=== PATIENT | female | born 1990 | race Caucasian/White ===

== ENCOUNTER 2017-04-25 16:26 | Emergency (ER) | payer MEDICAID, OTHER ==
[2017-04-25 21:52] LABS: ADD MAN DIFF? NO
[2017-04-25 21:55] LABS: WHITE BLOOD COUNT 10.5 10^3/ul (4.8-10.8)
[2017-04-25 21:55] LABS: BASOPHILS % 0.3 % (0.0-2.0); EOSINOPHILS # 0.1 10^3/ul (0.0-0.5); HEMATOCRIT 32.9 % (37.0-47.0); HEMOGLOBIN 11.5 g/dl (12.0-16.0); LYMPHOCYTES # 2.6 10^3/ul (0.8-2.9); LYMPHOCYTES % 24.9 % (15.0-51.0); MEAN CORPUSCULAR HEMOGLOBIN 30.3 pg (29.0-33.0); MEAN CORPUSCULAR VOLUME 86.6 fl (82.0-101.0); MEAN PLATELET VOLUME 10.7 fl (7.4-10.4); MONOCYTE # 0.9 10^3/ul (0.3-0.9); MONOCYTES % 8.6 % (0.0-11.0); NEUTROPHIL # 6.8 10^3/ul (1.6-7.5); NEUTROPHILS % 64.8 % (39.0-77.0); PLATELET COUNT 240 10^3/UL (140-415); RED CELL DISTRIBUTION WIDTH 13.2 % (11.5-14.5)
[2017-04-25 22:20] LABS: ADD UMIC YES; UR ASCORBIC ACID NEGATIVE (NEGATIVE); UR BILIRUBIN (Dip) NEGATIVE (NEGATIVE); UR BLOOD (Dip) 2+ mg/dL (NEGATIVE); UR CLARITY SLIGHTLY CLOUDY (CLEAR); UR COLOR YELLOW (YELLOW); UR GLUCOSE (Dip) NEGATIVE (NEGATIVE); UR KETONES (Dip) 2+ mg/dL (NEGATIVE); UR LEUKOCYTE ESTERASE (Dip) NEGATIVE Leu/ul (NEGATIVE); UR MUCUS MODERATE /HPF (NONE SEEN); UR NITRITE (Dip) NEGATIVE (NEGATIVE); UR RBC 2 /HPF (0-5); UR SPECIFIC GRAVITY (Dip) 1.017 (1.003-1.030); UR SQUAMOUS EPITHELIAL CELL FEW /HPF (FEW); UR TOTAL PROTEIN (Dip) NEGATIVE (NEGATIVE); UR UROBILINOGEN (Dip) NEGATIVE (NEGATIVE); UR WBC 3 /HPF (0-5)
== END 2017-04-25 23:50 | disposition home or self-care (01) ==
LOC: FTE 16:26
DX: O20.9 Hemorrhage in early pregnancy, unspecified (principal); Z3A.12 12 weeks gestation of pregnancy; R10.2 Pelvic and perineal pain
CPT/HCPCS: 36415; 76801; 81001; 84702; 85025; 86900; 86901; 99284-25

== ENCOUNTER 2017-10-26 19:12 | Inpatient (IN) | payer MEDICAID ==
[2017-10-26 20:50] LABS: ADD UMIC YES; UR ASCORBIC ACID NEGATIVE (NEGATIVE); UR BILIRUBIN (Dip) NEGATIVE (NEGATIVE); UR BLOOD (Dip) NEGATIVE (NEGATIVE); UR CLARITY SLIGHTLY CLOUDY (CLEAR); UR COLOR YELLOW (YELLOW); UR GLUCOSE (Dip) NEGATIVE (NEGATIVE); UR KETONES (Dip) NEGATIVE (NEGATIVE); UR LEUKOCYTE ESTERASE (Dip) TRACE Leu/ul (NEGATIVE); UR NITRITE (Dip) NEGATIVE (NEGATIVE); UR RBC 0 /HPF (0-5); UR SPECIFIC GRAVITY (Dip) 1.005 (1.003-1.030); UR SQUAMOUS EPITHELIAL CELL FEW /HPF (FEW); UR TOTAL PROTEIN (Dip) NEGATIVE (NEGATIVE); UR UROBILINOGEN (Dip) NEGATIVE (NEGATIVE); UR WBC 4 /HPF (0-5)
[2017-10-26] MEDS ORDERED: METHYLERGONOVINE 0.2 MG INJ IM (23:00)
[2017-10-26] MEDS ORDERED: OXYTOCIN 30 UNITS/LR 500 ML IV (23:00)
[2017-10-26] MEDS ORDERED: IBUPROFEN 600 MG TAB PO (23:00)
[2017-10-26] MEDS ORDERED: LIDOCAINE 1% (MPF) 30 ML INJ INJ (23:00)
[2017-10-26] MEDS ORDERED: BUTORPHANOL 2 MG INJ IV (23:00)
[2017-10-26] MEDS ORDERED: MISOPROSTOL 200 MCG TAB PR (23:00)
[2017-10-26] MEDS ORDERED: CARBOPROST 250 MCG INJ IM (23:00)
[2017-10-27] MEDS: LACTATED RINGER'S 1,000 ML IV* ×3 (00:02→17:40)
[2017-10-27 00:15] LABS: ADD MAN DIFF? NO
[2017-10-27] MEDS: AMPICILLIN 2 GM/NS (PMX) 100 ML IV (00:17)
[2017-10-27 00:22] LABS: BASOPHILS % 0.2 % (0.0-2.0); EOSINOPHILS # 0.1 10^3/ul (0.0-0.5); EOSINOPHILS % 0.9 % (0.0-7.0); HEMATOCRIT 36.7 % (37.0-47.0); HEMOGLOBIN 12.3 g/dl (12.0-16.0); LYMPHOCYTES # 1.8 10^3/ul (0.8-2.9); MEAN CORPUSCULAR HEMOGLOBIN 30.8 pg (29.0-33.0); MEAN CORPUSCULAR HGB CONC 33.5 g/dl (32.0-37.0); MEAN PLATELET VOLUME 10.9 fl (7.4-10.4); MONOCYTES % 9.4 % (0.0-11.0); NEUTROPHIL # 7.1 10^3/ul (1.6-7.5); NEUTROPHILS % 70.8 % (39.0-77.0); PLATELET COUNT 171 10^3/UL (140-415); RED BLOOD COUNT 3.99 10^6/ul (4.20-5.40); RED CELL DISTRIBUTION WIDTH 13.3 % (11.5-14.5)
[2017-10-27 00:22] LABS: WHITE BLOOD COUNT 10.1 10^3/ul (4.8-10.8)
[2017-10-27 00:41] LABS: INR 0.93; PARTIAL THROMBOPLASTIN TIME 25.2 Sec (25.0-35.0); PROTIME 12.5 Sec (11.9-14.9)
[2017-10-27] MEDS: DINOPROSTONE 10 MG VAG SUPP VAG ×2 (01:15→15:19)
[2017-10-27] MEDS: AMPICILLIN 1 GM/NS (PMX) 50 ML IV ×2 (04:19→08:48)
[2017-10-27 15:34] LABS: RAPID PLASMA REAGIN NONREACTIVE (NR)
[2017-10-28] MEDS: LACTATED RINGER'S 1,000 ML IV* ×4 (01:47→17:40)
[2017-10-28] MEDS: OXYTOCIN 30 UNITS/LR 500 ML IV (10:35)
[2017-10-28] MEDS ORDERED: FENTAnyl 2MCG/ML-ROPIV 0.2% 100 ML (17:27)
[2017-10-28] MEDS ORDERED: ONDANSETRON 4 MG INJ IV (18:00)
[2017-10-28] MEDS ORDERED: NALOXONE (0.4 MG/ML) INJ IV (18:00)
[2017-10-28] MEDS ORDERED: DIPHENHYDRAMINE 50 MG INJ IV (18:00)
[2017-10-28] MEDS: FENTAnyl 2MCG/ML-ROPIV 0.2% 100 ML BAG EPI (21:23)
[2017-10-29] MEDS: FENTAnyl 2MCG/ML-ROPIV 0.2% 100 ML BAG EPI (01:32)
[2017-10-29] MEDS: LACTATED RINGER'S 1,000 ML IV* (01:33)
[2017-10-29] MEDS: OXYTOCIN 30 UNITS/LR 500 ML IV ×3 (05:24→10:21)
[2017-10-29] MEDS ORDERED: METHYLERGONOVINE 0.2 MG TAB PO (10:30)
[2017-10-29] MEDS ORDERED: NACL 0.9% 3 ML SYG IV (10:30)
[2017-10-29] MEDS ORDERED: CARBOPROST 250 MCG INJ IM (10:30)
[2017-10-29] MEDS ORDERED: DIPHENHYDRAMINE 25 MG CAP PO (10:30)
[2017-10-29] MEDS ORDERED: OXYTOCIN 30 UNITS/LR 500 ML IV (10:30)
[2017-10-29] MEDS ORDERED: ONDANSETRON 4 MG INJ IV (10:30)
[2017-10-29] MEDS ORDERED: MISOPROSTOL 200 MCG TAB PR (10:30)
[2017-10-29] MEDS ORDERED: ACETAMINOPHEN 325 MG TAB PO (10:30)
[2017-10-29] MEDS ORDERED: METHYLERGONOVINE 0.2 MG INJ IM (10:30)
[2017-10-29] MEDS ORDERED: HYDROCODONE/APAP (5/325) TAB PO (10:30)
[2017-10-29] MEDS ORDERED: ZOLPIDEM 5 MG TAB PO (10:30)
[2017-10-29] MEDS: WITCH HAZEL/GLYCERIN PAD PR (10:46)
[2017-10-29] MEDS: LANOLIN 7 GM TUBE TOP (10:46)
[2017-10-29] MEDS: IBUPROFEN 600 MG TAB PO ×3 (12:19→23:34)
[2017-10-29] MEDS: SENNA/DOCUSATE NA (8.6MG/50MG) TAB PO (20:45)
[2017-10-30] MEDS: IBUPROFEN 600 MG TAB PO ×3 (05:37→17:27)
[2017-10-30] MEDS: SENNA/DOCUSATE NA (8.6MG/50MG) TAB PO ×2 (09:45→21:25)
[2017-10-31] MEDS: IBUPROFEN 600 MG TAB PO ×4 (00:07→17:10)
[2017-10-31] MEDS: MEASLES,MUMPS,RUBELLA VACCINE INJ SC* (09:00)
[2017-10-31] MEDS: DIPHTH/TET/ACEL PERTUSS (ADULT) 0.5 ML VIAL IM* (09:00)
[2017-10-31] MEDS: VARICELLA VACCINE LIVE/PF 1,350 UNIT/0.5 ML ML SC* (09:00)
[2017-10-31] MEDS: SENNA/DOCUSATE NA (8.6MG/50MG) TAB PO (10:10)
== END 2017-10-31 18:00 | disposition home or self-care (01) | DRG 775 ==
LOC: OBT 19:12 → PP1 10-29 08:31 → L-D 19:13 → OBT 21:52 → L-D 21:52
PROC: 3E0P7VZ Introduction of Hormone into Female Reproductive, Via Natural or Artificial Opening (ICD-10-PCS; 2017-10-26)
PROC: 10E0XZZ Delivery of Products of Conception, External Approach (ICD-10-PCS; principal; 2017-10-29)
PROC: 0KQM0ZZ Repair Perineum Muscle, Open Approach (ICD-10-PCS; 2017-10-29)
DX: O41.03X0 Oligohydramnios, third trimester, not applicable or unspecified (principal); O70.1 Second degree perineal laceration during delivery; Z3A.39 39 weeks gestation of pregnancy; Z37.0 Single live birth
CPT/HCPCS: 62319; 76815; 76818; 81001; 85025; 85610; 85730; 86592; 86850; 86900; 86901; 87086